=== PATIENT | male | born 1940 | race Caucasian/White ===

== ENCOUNTER 2016-09-13 09:00 | Inpatient (IN) | payer MEDICARE, BC ==
[~2016-09-13] VITALS: Ht 188 cm; Wt 110.0 kg
--- NOTE | ~2016-09-13 | CON ---
PATIENT'S NAME: BENIGNO JARRELL [facility] AGE: 75 Y [address] ROOM: [address] [place], [place] [address] LOCATION: [facility] ADMIT DATE: 09/13/2016 Consultation DISCHARGE DATE: FAMILY PHYSICIAN: PHYSICIAN, UNKNOWN ATTENDING PHYSICIAN: Ethel PATIÑO DATE OF CONSULTATION: 09/13/2016 REASON FOR CARDIOLOGY CONSULT: TIA symptoms and ventricular ectopy on EKG. HISTORY OF PRESENT ILLNESS: This is a 75-year-old male transferred from [place], [place], after a previous admission there for TIA symptoms while at work. He was noted to have difficulty with speech as well as vision changes, and his co-workers called the ambulance for him to be transferred to [place]. His symptoms did resolve by the time he was treated in the [place] [facility], but he did continue to experience bradycardia during his previous hospitalization as well as his EKG showing ventricular ectopy. He has a previous history of chronic atrial fibrillation and takes long-term anticoagulation with Eliquis. Also of note, on his EKG, he had T-wave inversions noted in his lateral leads. An echocardiogram in [place] showed an ejection fraction of 50% as well as inferior, distal, and inferolateral wall motion hypokinesis. He denies any complaints of angina, shortness of breath, dyspnea on exertion, palpitations, nausea, or vomiting. Overall, he feels that he is "back to normal." At the time of this consult, he is resting comfortably in bed without any complaints. 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 He is noted to be having frequent PVCs, but once again has no complaints of palpitations even though the PVCs can be palpated through his chest wall. PAST MEDICAL HISTORY: 1. Chronic atrial fibrillation. 2. Long-term anticoagulation with Eliquis. 3. Hypertension. 4. History of hay fever. PAST SURGICAL HISTORY: 1. Three separate surgeries to his right foot. 2. Left second toe partial amputation. 3. Peripheral arterial stenting. FAMILY HISTORY: The patient's father due to a myocardial infarction. His mother due to advanced age, but did have a history of heart failure. PATIENT'S NAME: BENIGNO JARRELL [facility] AGE: 75 Y [address] ROOM: [id number] [place] [id number] LOCATION: [facility] ADMIT DATE: 09/13/2016 Consultation DISCHARGE DATE: FAMILY PHYSICIAN: PHYSICIAN, UNKNOWN ATTENDING PHYSICIAN: Ethel PATIÑO SOCIAL HISTORY: The patient denies ever using tobacco. He does admit to alcohol use on 2 days a week, and on those days, he will only have one drink. He denies illicit drug use. CURRENT MEDICATIONS: 1. Eliquis 5 mg p.o. twice daily. 2. Lipitor 80 mg p.o. daily. 3. Norvasc 5 mg p.o. daily. MEDICATION ALLERGIES: Sulfa causing rash. REVIEW OF SYSTEMS: Pertinent positive review of systems listed in the HPI. All other review of systems evaluated and negative. PHYSICAL EXAMINATION: VITAL SIGNS: Temperature 98.3, pulse 84, respirations 16, blood pressure 179/92 with a repeat blood pressure of 156/85, and O2 saturation 94% on room air. The patient weighs 110 kg. SKIN: [place], warm, and dry to upper extremities and trunk. He does have extensive venous staining noted to bilateral lower extremities. EYES: Sclerae are clear. No xanthelasma. ENT: Oral mucosa is pink and moist. No jugular venous distention or carotid bruits. CHEST: Respirations are even and unlabored. Lungs are clear to auscultation. HEART: Irregular rate and rhythm. Normal S1 and S2. ABDOMEN: Soft and nontender. MUSCULOSKELETAL: Gait is normal. EXTREMITIES: Peripheral pulses palpable. No clubbing or cyanosis noted. Does have moderate lower extremity edema present. Also of note, once again, he does have extensive venous staining to his lower extremities. PSYCHIATRIC: Alert and oriented. Mood and affect are appropriate. IMPRESSION AND PLAN: Per Dr. Zeinab Nelson. 1. Ventricular ectopy with new wall motion abnormalities on echocardiogram. He has no complaints of angina, and no acute ST changes suggestive of coronary ischemia. He does have T-wave inversion in his inferior and anterior leads, so we will continue to trend his cardiac enzymes as well as plan for a myocardial perfusion imaging stress test in the a.m. 2. Transient ischemic attack symptoms, currently resolved. He is under the care of the Hospitalist Service at this time. PATIENT'S NAME: BENIGNO JARRELL [facility] AGE: 75 Y [address] ROOM: [id number] [place] [address] LOCATION: [facility] ADMIT DATE: 09/13/2016 Consultation DISCHARGE DATE: FAMILY PHYSICIAN: PHYSICIAN, UNKNOWN ATTENDING PHYSICIAN: Ethel PATIÑO 3. Atrial fibrillation with controlled rate. We will continue his Eliquis for anticoagulation, but he has been stopped on his beta martha and digoxin due to his bradycardia at times. 4. Hypertension, poorly controlled. We do agree with the addition of Norvasc by the Hospitalist Service. With this patient's increased [id number] score, we do once again agree with the Eliquis. He is in no need of rate control at this time due to him being slightly bradycardic. Due to his ecg changes, we will check a stress test in the a.m. for risk stratification and evaluation of ischemia if there is no evidence of acute CVA on MRI. We will also check a fasting lipid panel in the a.m. We will continue to monitor, evaluate, and treat as appropriate. Thank you for this consult. Thank you for allowing [facility] to interact in the care of this patient. KESHAWN NOVOA APRN FOR MD BAILEE RAMON/beverly /[id number] d: 09/13/161858 t: 09/18/16 1020, CONSULTATION REPORT
--- NOTE | ~2016-09-13 | CON ---
PATIENT'S NAME: BENIGNO JARRELL [facility] AGE: 75 Y [address] ROOM: [address] [place], [place] [address] LOCATION: [facility] ADMIT DATE: 09/14/2016 Consultation DISCHARGE DATE: FAMILY PHYSICIAN: Kylie Sherwood PA-C ATTENDING PHYSICIAN: Ethel PATIÑO DATE OF CONSULTATION: 09/14/2016 NEUROLOGICAL CONSULTATION DATE AND TIME: 09/14/2016 at 12:50 p.m. CHIEF COMPLAINT/REASON FOR CONSULTATION: New stroke as demonstrated on MRI. HISTORY OF PRESENT ILLNESS: This is a 75-year-old gentleman who presented to our hospital on Saturday with a history of hypertension, atrial fibrillation, peripheral vascular disease, and bullous pemphigoid. He presents from the [facility] with TIA symptoms, abnormal EKG, and abnormal echocardiogram. On Saturday, the patient developed difficulty speaking while at work. He was having trouble finding words. He was brought to the [facility]. When he arrived at the hospital, the patient's symptoms improved and he was back to normal. On admission to our hospital, the patient had a CT which showed artifact versus an MCA occlusion, however, the patient's symptoms have resolved and he was back to his normal state, thus tPA was not given. During his stay, his neurological status was intact. As the workup for TIA, the patient had a normal carotid Doppler which demonstrated 1 to 39% occlusion, and also had an echocardiogram which showed some inferior wall motion abnormality. EKG during his stay showed some lateral T-wave changes and also shown to be bradycardic in the low 40s with normal blood pressure. Dr. Arriola was contacted and the patient was sent from [place] to here for further ischemic workup. His digoxin and atenolol were stopped due to the heart rate. His digoxin level of note was 0.08. The patient denied any chest pain, shortness of breath, motor and sensory weakness, dizziness, fatigueness, orthopnea, fever, or chills. He denies any weakness from one side to the other. He denies any vision abnormalities. He denies any syncope, passing- out, falls, or any trauma. REVIEW OF SYSTEMS: A 14-point review of systems was completed and was negative except as noted in the HPI. PAST MEDICAL HISTORY: PATIENT'S NAME: BENIGNO JARRELL [facility] AGE: 75 Y [address] ROOM: [id number] [place], [place] [address] [facility] ADMIT DATE: 09/14/2016 Consultation DISCHARGE DATE: FAMILY PHYSICIAN: Kylie Sherwood PA-C ATTENDING PHYSICIAN: Ethel PATIÑO 1. History of bullous pemphigoid. 2. Hypertension. 3. Persistent atrial fibrillation, on Eliquis for 2 years. 4. Peripheral vascular disease. 5. Charcot foot. PAST SURGICAL HISTORY: Includes a foot surgery due to his Charcot foot complicated by osteomyelitis. FAMILY HISTORY: His father did of a heart attack in his 70s, and the mother also had heart disease in her 70s. SOCIAL HISTORY: He denies smoking. He is a social drinker. He is , and he works at the [employer] in [place]. MEDICATIONS: 1. Lisinopril 10 mg p.o. q. day. 2. Digoxin 250 mcg p.o. q. day. 3. Potassium chloride 60 mEq p.o. q. day. 4. Potassium chloride 40 mEq p.o. at bedtime. 5. Demadex 10 mg p.o. q.48 hours. 6. Tenormin 12.5 mg p.o. q. day. 7. Betamethasone dipropionate 1 application topically b.i.d. p.r.n. rash. 8. Imuran 50 mg p.o. every 4-day. 9. Eliquis 5 mg p.o. b.i.d. 10. Calcium carbonate and vitamin D3, 1 tablet p.o. q. day. 11. Ibuprofen 200 mg, he takes 2 tablets p.o. b.i.d. 12. Multiple vitamin with beta-carotene he takes 1 tablet p.o. q. day. 13. Mag-Ox 250 mg p.o. q. day. 14. Zyrtec 10 mg p.o. q. day. PHYSICAL EXAMINATION: VITAL SIGNS: He is afebrile. Blood pressure is 156/85, heart rate is 78, respirations 16, and he is saturating 96% on room air. GENERAL APPEARANCE: He is sitting in the chair and dressed. He is wanting to go home today. He participates in the exam. HEENT: Head; normocephalic and atraumatic without difficulties. Eyes; his extraocular movements are intact. NECK: No JVD. No nuchal rigidity. No carotid bruits auscultated. CHEST: Clear to auscultation bilaterally. HEART: Irregular with no murmur, rub, or gallop noted. NEUROLOGIC: He is alert and oriented x3. Motor to upper and lower extremities are intact. Cranial nerves 2 through 12 are intact. The [facility] PATIENT'S NAME: BENIGNO JARRELL [facility] AGE: 75 Y [address] ROOM: [place] [address] [facility] ADMIT DATE: 09/14/2016 Consultation DISCHARGE DATE: FAMILY PHYSICIAN: Kylie Sherwood PA-C ATTENDING PHYSICIAN: Ethel PATIÑO Stroke Scale, he is given a 1 for incorrect months. IMAGING STUDIES: His MRI revealed mild atrophy consistent with age, essentially normal periventricular white matter, a small left parietal acute ischemic infarct involving the cortex and underlying white matter to a lesser degree, without hemorrhage. The pituitary optic chiasm and orbits are normal, sinuses are clear, and posterior fossa structures are normal. Intracranial vascular flow voids are symmetrical and normal. This small stroke is in the distribution of the middle cerebral artery. His LDL was 108. IMPRESSION AND PLAN: The patient had what looks like to be an embolic stroke on Eliquis. I did call his pharmacy and they stated he had not refilled his Eliquis since 03/13/2016 and got 60 tablets at that time. The patient states he may have forgotten to take his Eliquis. 1. Probable cardioembolic stroke. The patient is definitely in atrial fibrillation. We will start the Eliquis, however, due to the acute stroke recommend starting Eliquis in 1 week. 2. Hyperlipidemia. The patient is on Lipitor. 3. Stroke rehabilitation. The patient is back to baseline, so physical therapy and occupational therapy will not be needed. Speech Therapy will be consulted for cognitive evaluation secondary to the patient thinking the year is 2013 and the month is September. Also due to the patient being noncompliant with his Eliquis medication. We will have Speech see for cognitive evaluation and also discuss medications with the when she arrives. 4. This plan of care was discussed with Dr. Lara and developed with his input. The plan of care was also discussed with the patient at length and with Dr. Juarez, hospitalist. We would like to thank you for the opportunity to participate in this patient's care and please notify us if you have any questions. TRUONG JARQUIN APRN FOR JOSE LARA MD PP/modl /[id number] d: 09/14/162058 t: 09/20/16 1318, CONSULTATION REPORT
--- NOTE | ~2016-09-13 | DS ---
PATIENT'S NAME: BENIGNO JARRELL [facility] AGE: 75 Y [address] ROOM: [address] [place], [place] [address] LOCATION: GPCU ADMIT DATE: 09/14/2016 Discharge Summary DISCHARGE DATE: 09/14/2016 FAMILY PHYSICIAN: Kylie Sherwood PA-C ATTENDING PHYSICIAN: Ethel PATIÑO PRINCIPAL DIAGNOSES: 1. Left parietal ischemic stroke. 2. Atrial fibrillation with controlled ventricular rate. 3. Hypertension. 4. Transient ischemic attack. 5. Bullous pemphigus. 6. Lrao-qd-osmuuryp memory deficits. HOSPITAL COURSE: A 75-year-old gentleman who was transferred from [place], [place] after previous admission there for TIA symptoms while at work. He was found to have ischemic stroke there and Neurology was consulted for tPA. He was not a tPA candidate given long-term anticoagulation with Eliquis. EKG was done over there, which did show some T-wave inversions and he was transferred here for further medical care. Echocardiogram over in [place] showed ejection of 50% as well as distal inferior hypokinesia. CAT scan initially showed artifact versus MCA occlusion. MRI was done, which did show left-sided parietal small ischemic stroke. Neurology consultation was made. It was assumed that the stroke is secondary to cardioembolic source. Neurology did not want any further imaging studies. On further review, it was noted that the patient might have some memory deficit. Speech evaluation was done and the patient was found to have fgty-gw-lpevnxek memory deficit. His pharmacy was called and it was found that he has not filled his Eliquis since February 2016. Discussion with the and daughter was held before discharge and told them about the prognosis and condition of his disease. Also, I asked them to make sure that he takes his medication and them to be in charge of his medication administration. He was also found to have low heart rate at [facility] and per Cardiology recommendation, we are going to stop his atenolol as well as digoxin. Given the T-wave inversion, Cardiology consultation was also made, which took the patient to the stress test, but stress test was aborted given the acute stroke and negative troponin levels. Dr. Oates will follow this patient in 4 weeks in [place]. We will schedule a followup with Dr. Lara in 2 weeks. DISCHARGE MEDICATIONS: 1. Aspirin 81 mg p.o. everyday. 2. Atorvastatin 80 mg p.o. everyday. 3. Azathioprine 50 mg p.o. every 5 days. 4. Lisinopril 10 mg p.o. everyday. 5. Magnesium oxide 400 mg p.o. everyday. PATIENT'S NAME: BENIGNO JARRELL [facility] AGE: 75 Y [address] ROOM: [place] [address] LOCATION: GPCU ADMIT DATE: 09/14/2016 Discharge Summary DISCHARGE DATE: 09/14/2016 FAMILY PHYSICIAN: Kylie Sherwood PA-C ATTENDING PHYSICIAN: Ethel PATIÑO 6. Potassium chloride 20 mEq tablet take 60 mEq everyday. 7. Torsemide 10 mg p.o. every 48 hours. 8. Apixaban 5 mg p.o. twice daily. Start after 1 week per Neurology and Cardiology recommendation. It was discussed with the patient. 9. Calcium carbonate plus vitamin D 400 tablet 1 tablet p.o. everyday. 10. Multivitamin 1 tablet p.o. everyday. 11. Cetirizine 10 mg p.o. everyday. 12. New medication Lipitor 80 mg p.o. q.h.s., 30 day supply. 13. Namenda 5 mg p.o. daily, 30 day supply. ACTIVITY: As tolerated. DIET: Low-sodium diet. FOLLOW UP: Follow up with Dr. Oates in 4 weeks. Follow up with Dr. Lara in 2 weeks. I spent 35 minutes in discharge planning, talking to family, addressing concerns, and coordinating care. MD ANTONIO CALDWELL/beverly /[id number] d: 09/15/16 0213 t: 09/16/16 1508, DISCHARGE SUMMARY
--- NOTE | ~2016-09-13 | ESTC ---
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 Conclusions Summary Perfusion Images: The overall quality of the study is fair, due to bowel interference . Impression Lexiscan stress test was cancelled due to acute ischemic CVA. Rest images were already obtained. Myocardial perfusion imaging at rest shows decreased perfusion in the inferior wall, could be secondary to bowel interference. There are no previous studies for comparison. Stress Protocols Resting ECG Afib Pre-stress physical exam: s1 s2, irrr clear lungs Predicted HR: 145 bpm Stress Interpretation Stress test cancelled due to acute ischemic cva. Imaging Results Summed scores - Summed rest score: 0 Imaging Protocols Rest Isotope:Tc99m Sestamibi IV Isotope dose:15.2 mCi Date:09/14/2016 07:37 Technique: SPECT Supine Scan Time:45-60 minutes post injection Medical History Admission Data Admission date: 09/13/2016 Admission Time: 10:44 Hospital Status: Inpatient. Signatures dtt: AVIS MACKENZIE dtd: 09/14/16 0939 Physician Self Edit
--- NOTE | ~2016-09-13 | HP ---
PATIENT'S NAME: BENIGNO JARRELL [facility] AGE: 75 Y [address] ROOM: [place] [address] LOCATION: GPCU ADMIT DATE: 09/13/2016 History & Physical DISCHARGE DATE: FAMILY PHYSICIAN: PHYSICIAN, UNKNOWN ATTENDING PHYSICIAN: Ethel PATIÑO DATE OF SERVICE: CHIEF COMPLAINT: TIA. HISTORY OF PRESENT ILLNESS: The patient is a 75-year-old gentleman with past medical history of hypertension, atrial fibrillation, peripheral vascular disease, and bullous pemphigoid who presents here from [facility] with TIA, abnormal EKG, and abnormal echo. On Monday 09/11, the patient experienced difficulty speaking while at work. The patient was brought to [facility] for further workup. En route to the hospital, the patient symptoms improved and was back to normal. On admission, the patient had a CT head showed artifact versus MCA occlusion. However, the patient's symptoms have resolved and was back to his normal state, thus tPA was not given. During his stay, his neurological status was intact. As a workup for TIA, the patient has a normal carotid Doppler and also had echo which shows inferior wall motion abnormality. EKG during stay showed some lateral T-wave changes and also noted to be bradycardic in the low 40s with normal blood pressure and the patient was asymptomatic. Dr. Oates was contacted and the patient was sent to our hospital for further ischemic workup. His digoxin and atenolol was stopped. His digoxin level was 0.8. The patient during this time denies chest pain, shortness of breath, motor and sensory weakness, dizziness, fatigueness, orthopnea, fever, and chills. MEDICAL HISTORY: 1. History of bullous pemphigoid. 2. Hypertension. 3. Persistent atrial fibrillation. 4. Peripheral vascular disease. SURGICAL HISTORY: Foot surgery secondary to peripheral vascular disease, complicated by osteomyelitis. FAMILY HISTORY: Father of a heart attack in his 70s. Mother also had heart disease in her 70s. PATIENT'S NAME: BENIGNO JARRELL [facility] AGE: 75 Y [address] ROOM: [place] [address] LOCATION: GPCU ADMIT DATE: 09/13/2016 History & Physical DISCHARGE DATE: FAMILY PHYSICIAN: PHYSICIAN, UNKNOWN ATTENDING PHYSICIAN: Ethel PATIÑO SOCIAL HISTORY: He denies smoking. He states he is social drinker. 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 MEDICATION: He takes: 1. Imuran 50 mg every 4-day. 2. Tylenol 25 mg daily. 3. Digoxin 0.25 mg daily. 4. Potassium 20 mEq 5 tabs a day. 5. Lisinopril 20 mg daily. LABORATORY DATA: Labs that were drawn today at [facility]; hemoglobin of 16.3, white blood cell count of 5.7, platelet of 138. Sodium of 144, potassium of 3.6, creatinine of 0.99, and BUN of 20. REVIEW OF SYSTEMS: All systems have been reviewed and are negative except for what is mentioned in the HPI. PHYSICAL EXAMINATION: VITAL SIGNS: Afebrile. Blood pressure 156/85, heart rate of 62, respiratory rate of 14, and saturating 92% on room air. GENERAL APPEARANCE: The patient is alert and awake, in no acute distress. HEAD: Normocephalic and atraumatic. EYES: Sclerae nonicterus. Extraocular muscle intact. THROAT: Oral mucosa is moist. NOSE: No nasal discharge. EAR: No ear discharge. NECK: No JVD. CHEST: Clear to auscultation bilaterally. HEART: Irregularly irregular. No murmur, rubs, or gallops heard. ABDOMEN: Soft, nontender, and nondistended. Bowel sounds present. EXTREMITY: Right foot deformity secondary to multiple surgery. Bilateral venous stasis with post inflammatory hyperpigmentation. SKIN: Warm to touch. No lesion except for venous stasis in lower extremity. NEURO: The patient is alert and oriented x3. Motor and sensory grossly intact. Cranial nerve 2 through 12 are grossly intact. DIAGNOSTIC DATA: PATIENT'S NAME: BENIGNO JARRELL [facility] AGE: 75 Y [address] ROOM: [place] [address] LOCATION[facility] ADMIT DATE: 09/13/2016 History & Physical DISCHARGE DATE: FAMILY PHYSICIAN: PHYSICIAN, UNKNOWN ATTENDING PHYSICIAN: Ethel PATIÑO EKG shows baseline of atrial fibrillation with nonspecific intraventricular conduction delay. Mild nonspecific T-wave change on V and AVF. Telemonitor also shows aberrant conduction. EKG showed during that confirmed that aberrant conduction. ASSESSMENT AND PLAN: The patient is a 75-year-old gentleman with a past medical history of hypertension, atrial fibrillation, and peripheral vascular disease who presents here with transient ischemic attack and abnormal echo and EKG finding concerning for ischemic cardiac disease. 1. Transient ischemic attack. The patient presented to [facility] with aphasia. Symptoms improved 30 minutes after presentation. NIH score on evaluation of [place] was 0. TPA was not given due to improvement of symptoms. However, CT done at the hospital shows artifact versus MCA occlusion. We will acquire MRI to further investigate. We will start the patient on high-dose Lipitor. We will continue Eliquis. 2. Bradycardia, improved currently. Heart rates in the 60s and 70s. Holding digoxin and atenolol. Telemonitor shows frequent PVCs and aberrant conductions. We will acquire a digoxin level to further investigate the digitoxicity. We will continue to hold digoxin and atenolol. We will also acquire potassium and magnesium level to keep potassium greater than 4 and magnesium greater than 2. 3. Possible ischemic cardiac disease. The patient noted to have some T-wave inversion at [facility] and echo showing hypokinesis of the inferior wall. We will trend troponin. The troponin at [facility] was unremarkable. Discussed the case with Dr. Oates. Possible ischemic workup with stress test during this admission. 4. Atrial fibrillation. On Eliquis. Continue Eliquis. We will hold kaylee blocking agents for now due to recent bradycardia. 5. Peripheral vascular disease. We will start the patient on Lipitor and continue Eliquis. 6. Hypertension. Continue lisinopril. We will add amlodipine as blood pressures is not controlled, still in the 160s to 150s of systolic blood pressure. 7. Bolus pemphigoid, currently on Imuran. We will continue his Imuran. The patient takes 50 mg of Imuran every 4 days, next dose Saturday. Greater than 60 minutes was spent on admission. Greater than 50% spent with direct contact with the patient and lean consultant. Discussed case with Cardiology. Discussed case with nursing staff. The patient's question was answered satisfactory. We will admit the patient for observation. HAROON BRICE MD PATIENT'S NAME: BENIGNO JARRELL [facility] AGE: 75 Y [address] ROOM: [place] [address] LOCATION: [facility] ADMIT DATE: 09/13/2016 History & Physical DISCHARGE DATE: FAMILY PHYSICIAN: PHYSICIAN, UNKNOWN ATTENDING PHYSICIAN: Ethel PATIÑO/beverly /[id number] D: [id number] T: [id number] HISTORY & PHYSICAL
--- NOTE | 2016-09-13 11:44 | NUR ---
Pt is 75 y/o male admit for ischemic heart disease,bradycardia for hospitalist. PT alert and oriented x3. Resides at home with and daughter. Daughter at bedside. Pt came here via ambulance from [facility]. Allergy to sulfa. Red and yellow bracelets on. Pt has been in the [facility] since Saturday when EMS picked him up at his place of work where they thought he may have had a TIA and was aphasic for a short time, according to pt's daughter. Hx PVD,peripheral stents,afib,htn,bradycardia,pneumonia,hayfever. Cardiology to consult.
[2016-09-13] MEDS ORDERED: LISINOPRIL20 MG PO (11:52)
[2016-09-13] MEDS ORDERED: LANOXIN (DIGI250 MCG PO (11:53)
[2016-09-13] MEDS ORDERED: TENORMIN25 MG PO (11:55)
[2016-09-13] MEDS ORDERED: POTASSIUM CHLO20 ME2 PO (11:55)
[2016-09-13] MEDS ORDERED: K-TAB ER20 MEQ PO (11:55)
[2016-09-13] MEDS ORDERED: DIPROSONE CREAM15 GM TOP (11:56)
[2016-09-13] MEDS ORDERED: DEMADEX20 MG PO (11:56)
[2016-09-13] MEDS ORDERED: ELIQUIS5 MG PO (11:58)
[2016-09-13] MEDS ORDERED: IMURAN50 MG PO (11:58)
[2016-09-13] MEDS ORDERED: IBUPROFEN200 MG PO (11:59)
[2016-09-13] MEDS ORDERED: CALCIUM 600 +1 EAC3 PO (11:59)
[2016-09-13] MEDS ORDERED: MAGNESIUM250 MG PO (12:00)
[2016-09-13] MEDS ORDERED: THERA-VITE W/ B1 TAB PO (12:00)
[2016-09-13] MEDS ORDERED: ZYRTEC10 MG PO (12:00)
[2016-09-13 13:58] LABS: ALBUMIN 3.7 gm/dL (3.5-5.0); BLOOD UREA NITROGEN 21 mg/dL (6-24); CALCIUM 8.7 mg/dL (8.5-10.5); CHLORIDE 104 mMol/L (96-110); CO2 30 mMol/L (22-32); CPK 69 IU/L (35-332); ESTIMATED GFR (MDRD EQUATION) > 60; MAGNESIUM 2.1 mg/dL (1.8-2.6); PHOSPHORUS 3.1 mg/dL (2.5-4.9); SODIUM 141 mMol/L (135-145)
--- NOTE | 2016-09-13 19:17 | NUR ---
PATIENT WAS ADMITTED TODAY, FAMILY AT BEDSIDE. MRI OF BRAIN THIS SHIFT. PLAN FOR STRESS TEST IN AM. NPO AFTER MIDNIGHT.
[2016-09-13 19:42] LABS: CPK 69 IU/L (35-332)
[2016-09-14 01:05] LABS: CPK 57 IU/L (35-332)
--- NOTE | 2016-09-14 04:29 | NUR ---
Pt a/o x4. no s/sx of stroke/tia. vss on RA, afebrile. Up adlib. on portable tele. denies pain. HR dips into lower 40's when asleep. Probably could use a sleep study-? DAVID. Plan: Nuc stress today
--- NOTE | 2016-09-14 12:31 | NUR ---
Introduced self and role of care management to patient. He lives in [place] with his . He states that he is able to do all his own ADL's. He is still workign fulltime. He states that his is available to assist if needed. He plans on returning home on discharge. He denies any needs at this time. Will continue to follow.
[2016-09-14] MEDS ORDERED: LIPITOR80 MG PO (16:18)
[2016-09-14] MEDS ORDERED: ASPIRIN (CHILDR81 MG PO (16:19)
[2016-09-14] MEDS ORDERED: NAMENDA5 MG PO (16:20)
--- NOTE | 2016-09-14 17:45 | NUR ---
Patient was discharged home in stable condition. IV was removed from his left hand and VSS. Was instructed to follow up on September [address] Lara and Divina Rodriguez. Also instructed to call the [place] [facility] to make an appointment with Dr. Oates. Education given about stroke and his new medications. Gives verbal understanding and signs our copies. Taken to the front by the TRANSPLANT RN via wheelchair.
== END 2016-09-14 17:45 | disposition disaster alternative care site (69) | DRG 66 ==
LOC: GPCU 10:44
PROVIDERS: ADMIT Internal Medicine
DX: I63.9 Cerebral infarction, unspecified (principal); I48.2 Chronic atrial fibrillation; I69.311 Memory deficit following cerebral infarction; I10 Essential (primary) hypertension; Z79.01 Long term (current) use of anticoagulants; I73.9 Peripheral vascular disease, unspecified; F17.290 Nicotine dependence, other tobacco product, uncomplicated
CPT/HCPCS: G0378; J2785; J7500

== ENCOUNTER → 2016-09-13 | Outpatient (CLI) | payer MEDICARE, BC ==
[~2016-09-13] MED LIST: ASPIRIN (CHILDR81 MG PO; CALCIUM 600 +1 EAC3 PO; DEMADEX20 MG PO; DIPROSONE CREAM15 GM TOP; ELIQUIS5 MG PO; IBUPROFEN200 MG PO; IMURAN50 MG PO; K-TAB ER20 MEQ PO; LANOXIN (DIGI250 MCG PO; LIPITOR80 MG PO; LISINOPRIL20 MG PO; MAGNESIUM250 MG PO; NAMENDA5 MG PO; POTASSIUM CHLO20 ME2 PO; TENORMIN25 MG PO; THERA-VITE W/ B1 TAB PO; ZYRTEC10 MG PO
== END | disposition disaster alternative care site (69) ==
LOC: GAMB 09:45
DX: R53.1 Weakness (principal); R00.1 Bradycardia, unspecified; Z88.1 Allergy status to other antibiotic agents
CPT/HCPCS: A0425; A0426